=== PATIENT | female | born 1980 | race African-American/Black ===

== ENCOUNTER 2018-09-03 21:13 | Emergency (ER) | payer SELFPAY ==
[~2018-09-03] VITALS: Ht 157.5 cm; Wt 81.9 kg
[2018-09-03 21:53] VITALS: BP 121/88
== END 2018-09-03 23:54 | disposition left against medical advice (07) ==
LOC: ER 21:13
DX: Z53.21 Procedure and treatment not carried out due to patient leaving prior to being seen by health care provider (principal); J45.909 Unspecified asthma, uncomplicated; M54.30 Sciatica, unspecified side; Z98.890 Other specified postprocedural states